=== PATIENT | male | born 1960 ===

== ENCOUNTER 2018-01-13 15:05 | Emergency (ER) | payer OTHER ==
[2018-01-13 15:31] VITALS: BP 160/84; PULSE 79; RESP 18; TEMP 97.3; O2SAT 96
[2018-01-13 17:01] LABS: HEMOGLOBIN 12.7 g/dL (12.0-18.0); MEAN CORPUSCULAR HGB CONC 31.7 g/dL (33.0-37.0); RBC 4.72 Mil/uL (4.40-5.90); RED CELL DISTRIBUTION WIDTH 13.8 % (11.5-14.5)
[2018-01-13 17:10] LABS: ALB/GLOB RATIO 1.2 (1.0-2.1); ALBUMIN 3.7 g/dL (3.5-5.0); ALT/SGPT 41 U/L (21-72); AST/SGOT 24 U/L (17-59); BLOOD UREA NITROGEN 18 mg/dl (9-20); CALCIUM 8.7 mg/dL (8.4-10.2); GFR AFRICAN-AMERICAN > 60; GFR NON-AFRICAN AMERICAN > 60
[2018-01-13 17:17] LABS: URINE BACTERIA RARE (<OCC); URINE BILIRUBIN NEGATIVE (NEGATIVE); URINE BLOOD LARGE (NEGATIVE); URINE CLARITY CLOUDY (Clear); URINE COLOR AMBER (YELLOW); URINE GLUCOSE (UA) NEG (Normal); URINE LEUKOCYTE ESTERASE NEG Leu/uL (Negative); URINE PROTEIN 100 mg/dL (NEGATIVE); URINE UROBILINOGEN 0.2-1.0 mg/dL (0.2-1.0)
[2018-01-13 17:22] LABS: PROTHROMBIN TIME 10.5 Seconds (9.8-13.1)
[2018-01-13 17:23] LABS: PARTIAL THROMBOPLASTIN TIME 32.7 Seconds (25.6-37.1)
--- NOTE | 2018-01-13 17:58 | ED PDOC ---
HPI: Male Pain Time Seen by Provider: 01/13/18 16:28 Chief Complaint (Nursing): Male Genitourinary Chief Complaint (Provider): Hematuria History Per: Patient History/Exam Limitations: no limitations Onset/Duration Of Symptoms: Hrs Current Symptoms Are (Timing): Still Present Associated Symptoms: denies: Fever Alleviating Factors: None Additional Complaint(s): 57 year old male with a past medical history of hypertension presents to the ED complaining of multiple episodes of hematuria. Denies pain, trauma, fever, dysuria. Patient states he has not had similar symptoms in the past. Past Medical History Reviewed: Historical Data, Nursing Documentation, Vital Signs Vital Signs: Last Vital Signs Temp 97.3 F L 01/13/18 15:27 Pulse 79 01/13/18 15:27 Resp 18 01/13/18 15:27 BP 160/84 H 01/13/18 15:27 Pulse Ox 96 01/13/18 15:27 - Medical History PMH: HTN - Surgical History Surgical History: No Surg Hx - Family History Family History: States: Unknown Family Hx - Social History Current smoker - smoking cessation education provided: No Ex-Smoker (has not smoked in the last 12 months): No Alcohol: None Drugs: Denies - Allergies Allergies/Adverse Reactions: Allergies Allergy/AdvReac Type Severity Reaction Status Date / Time vancomycin Allergy RASH Verified 01/13/18 15:27 Review of Systems ROS Statement: Except As Marked, All Systems Reviewed And Found Negative Constitutional: Negative for: Fever Genitourinary Male: Positive for: Hematuria. Negative for: Dysuria Physical Exam - Reviewed Nursing Documentation Reviewed: Yes Vital Signs Reviewed: Yes - Physical Exam Appears: Positive for: Non-toxic, No Acute Distress Head Exam: Positive for: ATRAUMATIC, NORMAL INSPECTION, NORMOCEPHALIC Skin: Positive for: Normal Color, Warm, Dry. Negative for: Rash Eye Exam: Positive for: Normal appearance, EOMI ENT: Positive for: Normal ENT Inspection. Negative for: Nasal Congestion, Tonsillar Exudate Neck: Positive for: Normal, Painless ROM, Supple Cardiovascular/Chest: Positive for: Regular Rate, Rhythm, Chest Non Tender. Negative for: Tachycardia Respiratory: Positive for: Normal Breath Sounds. Negative for: Rales, Rhonchi, Wheezing, Respiratory Distress Gastrointestinal/Abdominal: Positive for: Normal Exam, Bowel Sounds, Soft. Negative for: Tenderness, Mass (no palpable masses), Guarding, Rebound Back: Positive for: Normal Inspection. Negative for: L CVA Tenderness, R CVA Tenderness Extremity: Positive for: Normal ROM, Tenderness. Negative for: Deformity, Swelling Neurologic/Psych: Positive for: Alert, Oriented. Negative for: Motor/Sensory Deficits - Laboratory Results Result Diagrams: 01/13/18 16:54 01/13/18 16:54 - ECG O2 Sat by Pulse Oximetry: 96 (RA) Pulse Ox Interpretation: Normal Medical Decision Making Medical Decision Makin Initial Impression 57 y/o male presenting with hematuria possible infection Initial Plan: * CT ABD&PELV * CMP * CBC * Partial Thromboplastin * Prothrombin Time * Urinalysis * Reevaluation Documented by Kristine Saldana acting as a scribe for Christiano Boudreaux DO. All medical record entries made by the Scribe were at my direction and personally dictated by me. I have reviewed the chart and agree that the record accurately reflects my personal performance of the history, physical exam, medical decision making, and the department course for this patient. I have also personally directed, reviewed, and agree with the discharge instructions and disposition. Disposition - Clinical Impression Clinical Impression: Hematuria - Patient ED Disposition Is Patient to be Admitted: No Doctor Will See Patient In The: Office Counseled Patient/Family Regarding: Studies Performed - Disposition Disposition: Routine/Home Disposition Time: 20:00 Condition: STABLE Instructions: Blood in the Urine (Hematuria) in Adults Forms: [facility] ([place]ogolese)
--- NOTE | 2018-01-13 19:42 | ED PDOC ---
- Laboratory Results Result Diagrams: 01/13/18 16:54 01/13/18 16:54 - ECG O2 Sat by Pulse Oximetry: 96 (RA) Pulse Ox Interpretation: Normal Medical Decision Making Medical Decision Making: Patient signed out to provider at [address] Boudreaux pending CT and reevaluation. 1955 EXAM: CT Abdomen and Pelvis Without Intravenous Contrast CLINICAL HISTORY: 57 years old, male; Signs and symptoms; Other: Hematuria; Patient HX: HTN dm, . pt denies SX TECHNIQUE: Axial computed tomography images of the abdomen and pelvis without intravenous contrast. All CT scans at this facility use one or more dose reduction techniques, viz.: automated exposure control; ma/kV adjustment per patient size (including targeted exams where dose is matched to indication; i.e. head); or iterative reconstruction technique. COMPARISON: No relevant prior studies available. FINDINGS: Limitations: Motion artifact - mild. Lower thorax: Minimal atelectasis/scarring. Borderline cardiomegaly. Coronary artery calcifications. Small hiatal hernia. ABDOMEN: Liver: Punctate calcification. Gallbladder and bile ducts: Calcified gallstones. No significant ductal dilation. Pancreas: Unremarkable. No ductal dilation. Spleen: No splenomegaly. Adrenals: No mass. Kidneys and ureters: No renal calculi. No hydronephrosis. Stomach and bowel: No definite mural thickening. No obstruction. Appendix: Normal caliber. No inflammation. PELVIS: Bladder: Unremarkable. No stones. Reproductive: Mildly enlarged prostate. ABDOMEN and PELVIS: Intraperitoneal space: No significant fluid collection. No free air. Bones/joints: No acute fracture. Soft tissues: Unremarkable. Vasculature: Moderate atherosclerotic disease. Focal ectasia of infrarenal aorta , up to 2.5 cm. Lymph nodes: No pathologically enlarged lymph nodes. IMPRESSION: 1. No definite CT evidence of urolithiasis. 2. Incidental/non-acute findings are described above. [id number] Labs were reviewed, provider called lab to question why urinalysis reflected large hematuria but only 1 RBC per high power field. kennel technicianHandprint informed provider that there was likely a machine error in the dilution process and the lab would have to be repeated. Labs now reflect over 6000 RBC's per high power field. Benign results discussed with patient and he was informed that his hematuria was likely due to viral cystitis. Patient was advised to follow up with his primary care provider (Dr. Walton) and to discontinue the use of baby aspirin. Return precautions were given. Diagnosis: Hematuria Condition: Stable Follow up: PMD - Dr Walton Documented by Kristine Saldana acting as a scribe for Vahid June MD. All medical record entries made by the Scribe were at my direction and personally dictated by me. I have reviewed the chart and agree that the record accurately reflects my personal performance of the history, physical exam, medical decision making, and the department course for this patient. I have also personally directed, reviewed, and agree with the discharge instructions and disposition. Disposition Counseled Patient/Family Regarding: Studies Performed, Diagnosis, Need For Followup - Clinical Impression Clinical Impression: Hematuria - POA Present On Arrival: None - Disposition Disposition: Routine/Home Disposition Time: 22:34 Condition: STABLE Instructions: Blood in the Urine (Hematuria) in Adults Forms: [facility] ([place])
--- NOTE | 2018-01-13 19:56 | CT ---
EXAM: CT Abdomen and Pelvis Without Intravenous Contrast CLINICAL HISTORY: 57 years old, male; Signs and symptoms; Other: Hematuria; Patient HX: HTN dm, . pt denies SX TECHNIQUE: Axial computed tomography images of the abdomen and pelvis without intravenous contrast. All CT scans at this facility use one or more dose reduction techniques, viz.: automated exposure control; ma/kV adjustment per patient size (including targeted exams where dose is matched to indication; i.e. head); or iterative reconstruction technique. COMPARISON: No relevant prior studies available. FINDINGS: Limitations: Motion artifact - mild. Lower thorax: Minimal atelectasis/scarring. Borderline cardiomegaly. Coronary artery calcifications. Small hiatal hernia. ABDOMEN: Liver: Punctate calcification. Gallbladder and bile ducts: Calcified gallstones. No significant ductal dilation. Pancreas: Unremarkable. No ductal dilation. Spleen: No splenomegaly. Adrenals: No mass. Kidneys and ureters: No renal calculi. No hydronephrosis. Stomach and bowel: No definite mural thickening. No obstruction. Appendix: Normal caliber. No inflammation. PELVIS: Bladder: Unremarkable. No stones. Reproductive: Mildly enlarged prostate. ABDOMEN and PELVIS: Intraperitoneal space: No significant fluid collection. No free air. Bones/joints: No acute fracture. Soft tissues: Unremarkable. Vasculature: Moderate atherosclerotic disease. Focal ectasia of infrarenal aorta, up to 2.5 cm. Lymph nodes: No pathologically enlarged lymph nodes. IMPRESSION: 1. No definite CT evidence of urolithiasis. 2. Incidental/non-acute findings are described above.
[2018-01-13 21:19] LABS: URINE BILIRUBIN NEGATIVE (NEGATIVE); URINE BLOOD LARGE (NEGATIVE); URINE CLARITY CLOUDY (Clear); URINE COLOR RED (YELLOW); URINE GLUCOSE (UA) 50 mg/dL (Normal); URINE LEUKOCYTE ESTERASE NEG Leu/uL (Negative); URINE PROTEIN NEGATIVE (NEGATIVE); URINE UROBILINOGEN 0.2-1.0 mg/dL (0.2-1.0)
== END 2018-01-13 22:27 | disposition home or self-care (01) ==
LOC: H.ER 15:05
DX: N30.90 Cystitis, unspecified without hematuria (principal); I10 Essential (primary) hypertension; E11.9 Type 2 diabetes mellitus without complications